=== PATIENT | female | born 1970 | race Caucasian/White ===

== ENCOUNTER 2017-02-14 00:13 | Emergency (ER) | payer MEDICAID ==
[~2017-02-14] VITALS: Ht 162.6 cm; Wt 55.3 kg
[2017-02-14 01:39] VITALS: BP 136/91
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
== END 2017-02-14 01:51 | disposition left against medical advice (07) ==
LOC: ER 00:16
DX: Z53.21 Procedure and treatment not carried out due to patient leaving prior to being seen by health care provider (principal); M54.5 Low back pain
CPT/HCPCS: A4606; Z7610

== ENCOUNTER 2020-07-16 18:49 | Emergency (ER) | payer MEDICAID ==
[~2020-07-16] VITALS: Ht 165.1 cm; Wt 50.8 kg
[2020-07-16 19:19] VITALS: BP 104/63
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
== END 2020-07-16 21:14 | disposition home or self-care (01) ==
LOC: ER 18:49
DX: U07.1 COVID-19 (principal); J40 Bronchitis, not specified as acute or chronic; R43.8 Other disturbances of smell and taste; R51.9 Headache, unspecified; G89.29 Other chronic pain; M54.9 Dorsalgia, unspecified
CPT/HCPCS: 71045; 99284; C9803; U0003